=== PATIENT | female | born 1960 | race Caucasian/White ===

== ENCOUNTER 2019-11-15 08:42 | Emergency (ER) | payer OTHER ==
[~2019-11-15] VITALS: Ht 167.6 cm; Wt 85.7 kg
[2019-11-15] MEDS ORDERED: PROZAC20 MG (08:48)
[2019-11-15] MEDS ORDERED: HYDROCHLOROTHIA25 MG (08:48)
== END 2019-11-15 09:38 | disposition home or self-care (01) ==
LOC: ER 08:42
DX: J03.90 Acute tonsillitis, unspecified (principal)